=== PATIENT | female | born 1955 | race Two or more races ===

== ENCOUNTER 2020-08-18 06:27 | Inpatient (IN) | payer OTHER, BC ==
[2020-08-13 10:37] VITALS: BMI 37.3
[2020-08-18] MEDS ORDERED: BUPIVACAINE LIPOSOME/PF (EXPAREL) 266 MG/20 ML VIAL ONE (08:14)
[2020-08-18] MEDS ORDERED: MIDAZOLAM HCL 2 MG/2 ML SINGLE DOSE VIAL ONE ×3 (08:14→09:08)
[2020-08-18] MEDS ORDERED: SODIUM CHLORIDE 0.9% P/F 10 ML VIAL IJ ONE (08:15)
[2020-08-18] MEDS ORDERED: BUPIVACAINE HCL/PF 0.5% (5MG/ML) 10 ML VIAL ONE (08:15)
[2020-08-18] MEDS ORDERED: BUPIVACAINE HCL 50 ML ONE (09:06)
[2020-08-18] MEDS ORDERED: PROPOFOL 20 ML ONE ×6 (09:08→11:31)
[2020-08-18] MEDS ORDERED: PHENYLEPHRINE HCL 10 MG/1 ML SINGLE DOSE VIAL ONE (09:44)
[2020-08-18] MEDS ORDERED: VANCOMYCIN 1,000 MG VIAL (RESTRICTED TO ID ONLY) ONE (09:44)
[2020-08-18] MEDS ORDERED: DEXAMETHASONE SOD PHOSPHATE 4 MG/1 ML VIAL ONE (09:44)
[2020-08-18] MEDS ORDERED: ONDANSETRON 4 MG/2 ML VIAL ONE (09:44)
[2020-08-18] MEDS ORDERED: ceFAZolin SODIUM 1 GM VIAL ONE ×2 (09:44→12:26)
[2020-08-18] MEDS ORDERED: TRANEXAMIC ACID 1000 MG/10 ML VIAL ONE (09:44)
[2020-08-18] MEDS ORDERED: oxyCODONE HCL 5 MG TABLET PO PRN (10:26)
[2020-08-18] MEDS ORDERED: ONDANSETRON 4 MG/2 ML VIAL IVPUSH PRN ×2 (10:26→12:37)
[2020-08-18] MEDS ORDERED: traMADol HCL 50 MG TABLET PO PRN (10:26)
[2020-08-18] MEDS ORDERED: LACTATED RINGERS SOLUTION 1,000 ML IV SCH ×2 (10:30→12:45)
[2020-08-18] MEDS ORDERED: ACETAMINOPHEN 1000 MG/100 ML VIAL (NON FORMULARY) IVPB ONE (11:00)
[2020-08-18] MEDS ORDERED: GABAPENTIN 100 MG CAPSULE PO PRN (12:35)
[2020-08-18] MEDS ORDERED: MAGNESIUM HYDROX 2400MG/30ML ORAL SUSPENSION 30 ML CUP PO PRN (12:37)
[2020-08-18] MEDS ORDERED: MAG HYDROX/AL HYDROX/SIMETH 30 ML UNIT-DOSE CUP PO PRN (12:37)
[2020-08-18] MEDS ORDERED: ACETAMINOPHEN INJECTION 100 ML IVPB ONE (12:53)
[2020-08-18] MEDS: oxyCODONE HCL 5 MG TABLET PO PRN ×2 (15:35→19:36)
[2020-08-18] MEDS: CEFAZOLIN 2 GM/D5W 2 GM/50 ML ML IVPB SCH (18:19)
[2020-08-18] MEDS: DULoxetine HCL 30 MG CAPSULE.DR PO SCH (21:03)
[2020-08-18] MEDS: MONTELUKAST NA 10 MG TABLET PO SCH (21:03)
[2020-08-18] MEDS: SENNOSIDES/DOCUSATE COMBO (SENNA PLUS) TABLET (UD) PO SCH (21:03)
[2020-08-18] MEDS: oxyCODONE HCL 10 MG SUSTAINED ACTING TABLET PO SCH (21:04)
[2020-08-18] MEDS: ASPIRIN COATED 81 MG TABLET.EC PO SCH (21:04)
[2020-08-18] MEDS ORDERED: GABAPENTIN 300 MG CAPSULE PO SCH (22:00)
[2020-08-19] MEDS: oxyCODONE HCL 5 MG TABLET PO PRN ×3 (00:04→12:39)
[2020-08-19] MEDS: CEFAZOLIN 2 GM/D5W 2 GM/50 ML ML IVPB SCH ×2 (00:04→06:05)
[2020-08-19 07:49] LABS: CALCIUM 8.8 mg/dl (8.5-10); CREATININE 0.7 mg/dl (0.55-1.3)
[2020-08-19 07:58] LABS: HEMATOCRIT 38.7 % (32.4-45.2); HEMOGLOBIN 13.3 GM/dl (10.7-15.3); MCH 29.6 pg (25.7-33.7); MCHC 34.3 g/dl (32.0-36.0); MEAN CELL VOLUME 86.3 fl (80-96); MEAN PLT VOLUME 8.9 fl (7.5-11.1); PLATELET COUNT 330 10^3/uL (134-434); RBC 4.48 M/mm3 (3.60-5.2); RDW 14.6 % (11.6-15.6); WHITE BLOOD COUNT 16.1 K/mm3 (4.0-10.8)
[2020-08-19] MEDS ORDERED: PATIENT'S OWN MEDICATION (NON-FORMULARY) (Cetirizine Hcl [Zyrtec] 10 MG Tablet) PO SCH (10:00)
[2020-08-19] MEDS: ASPIRIN COATED 81 MG TABLET.EC PO SCH ×2 (10:11→21:37)
[2020-08-19] MEDS: CELECOXIB 200 MG CAPSULE PO SCH (10:12)
[2020-08-19] MEDS: oxyCODONE HCL 10 MG SUSTAINED ACTING TABLET PO SCH ×2 (10:13→21:38)
[2020-08-19] MEDS: amLODIPine BESYLATE 5 MG TABLET (FP) PO SCH (10:13)
[2020-08-19] MEDS: SENNOSIDES/DOCUSATE COMBO (SENNA PLUS) TABLET (UD) PO SCH ×3 (10:13→21:44)
[2020-08-19] MEDS: PANTOPRAZOLE 40 MG TABLET PO SCH (10:13)
[2020-08-19] MEDS: LORATADINE 10 MG TABLET PO SCH (10:25)
[2020-08-19] MEDS: ACETAMINOPHEN 325 MG TABLET (FP) PO SCH ×3 (15:00→21:45)
[2020-08-19] MEDS: DULoxetine HCL 30 MG CAPSULE.DR PO SCH (21:37)
[2020-08-19] MEDS: GABAPENTIN 300 MG CAPSULE PO SCH (21:38)
[2020-08-19] MEDS: MONTELUKAST NA 10 MG TABLET PO SCH (21:39)
[2020-08-19] MEDS ORDERED: ATORVASTATIN CA 20 MG TABLET (FP) PO SCH (22:00)
[2020-08-20] MEDS: ACETAMINOPHEN 325 MG TABLET (FP) PO SCH ×2 (03:00→09:51)
[2020-08-20 09:02] LABS: HEMATOCRIT 37.7 % (32.4-45.2); HEMOGLOBIN 12.8 GM/dl (10.7-15.3); MCH 29.1 pg (25.7-33.7); MCHC 33.9 g/dl (32.0-36.0); MEAN CELL VOLUME 85.8 fl (80-96); MEAN PLT VOLUME 8.5 fl (7.5-11.1); PLATELET COUNT 330 10^3/uL (134-434); RBC 4.39 M/mm3 (3.60-5.2); RDW 14.9 % (11.6-15.6)
[2020-08-20 09:49] VITALS: BP 112/53; PULSE 99; TEMP 98.9
[2020-08-20] MEDS: LORATADINE 10 MG TABLET PO SCH (09:51)
[2020-08-20] MEDS: PANTOPRAZOLE 40 MG TABLET PO SCH (09:51)
[2020-08-20] MEDS: amLODIPine BESYLATE 5 MG TABLET (FP) PO SCH (09:51)
[2020-08-20] MEDS: CELECOXIB 200 MG CAPSULE PO SCH (09:52)
[2020-08-20] MEDS: GABAPENTIN 300 MG CAPSULE PO SCH (09:52)
[2020-08-20] MEDS: oxyCODONE HCL 10 MG SUSTAINED ACTING TABLET PO SCH (09:52)
[2020-08-20] MEDS: ASPIRIN COATED 81 MG TABLET.EC PO SCH (09:52)
[2020-08-20] MEDS: SENNOSIDES/DOCUSATE COMBO (SENNA PLUS) TABLET (UD) PO SCH (10:08)
== END 2020-08-20 11:00 | DRG 470 ==
LOC: FM/S 06:27
PROVIDERS: ADMIT Orthopaedic Surgery Orthopaedic Surgery of the Spine; ATTEND Orthopaedic Surgery Orthopaedic Surgery of the Spine
PROC: 0SRC0J9 Replacement of Right Knee Joint with Synthetic Substitute, Cemented, Open Approach (ICD-10-PCS; principal; 2020-08-18 10:08)
DX: M17.11 Unilateral primary osteoarthritis, right knee (principal); I10 Essential (primary) hypertension; K21.9 Gastro-esophageal reflux disease without esophagitis; M79.7 Fibromyalgia
CPT/HCPCS: 36415; 73560-TC-RT-FY; 80048; 85027; 94760; 97010-GP; 97116-GP; 97161-GP; J0131